=== PATIENT | male | born 1980 ===

== ENCOUNTER 2024-01-30 03:31 | Outpatient (CLI) | payer BC | END 2024-01-30 23:59 | disposition critical access hospital (66) | LOC: EMS 03:31 | DX: R55 Syncope and collapse (principal); R10.32 Left lower quadrant pain; R42 Dizziness and giddiness; I95.1 Orthostatic hypotension | CPT/HCPCS: A0425; A0427 ==

== ENCOUNTER 2024-01-30 04:00 | Emergency (ER) | payer BC ==
--- NOTE | 2024-01-30 04:04 | ED Physician Documentation ---
History of Present Illness - Stated complaint Stated Complaint: DEHYDRATION, SYNCOPE - History obtained from History obtained from: Patient, EMS - Additonal information Additional information: 43-year-old man previously healthy only on sildenafil presents with syncope x 2 tonight. Patient states he was going to the bathroom, urinated and then felt the left sharp pelvic pain that caused him to double over and then fainted twice. On EMS arrival he had significant positive orthostatics with 40 point drop in blood pressure. He did have 2 servings of alcohol at dinnertime. Denies fever, chest pain, shortness of breath, nausea vomiting diarrhea. PD PAST MEDICAL HISTORY - Allergies Allergies/Adverse Reactions: Allergies Allergy/AdvReac Type Severity Reaction Status Date / Time No Known Drug Allergies Allergy Verified 01/30/24 04:10 PD ED PE NORMAL - Vitals Vital signs reviewed: Yes - General General: Alert and oriented X 3, No acute distress, Well developed/nourished - HEENT HEENT: Atraumatic, PERRL, EOMI, Moist mucous membranes, Pharynx benign - Neck Neck: Supple, no meningeal sign - Cardiac Cardiac: RRR - Respiratory Respiratory: No respiratory distress, Clear bilaterally - Abdomen Abdomen: Non tender, Non distended, Other (Left lowerquadrant discomfort to palpation) Results - Vitals Vitals: Vital Signs - 24 hr 01/30/24 01/30/24 04:06 04:39 Temperature 36.6 C Heart Rate 82 85 Respiratory 16 16 Rate Blood Pressure 122/83 H 120/80 O2 Saturation 99 98 Oxygen O2 Source Room air - EKG (time done) 0434 EKG releavant findings:: EKG personally interpreted by author of this note. Relevant findings are: Rate: Rate (enter#) (81) Rhythm: NSR [place]: Normal Intervals: Normal SD QRS: Normal Ischemia: ST elevation c/w repol - Labs Labs: Laboratory Tests 01/30/24 01/30/24 04:02 04:02 WBC 7.0 RBC 3.98 L Hgb 13.3 L Hct 39.3 L MCV 98.7 H MCH 33.4 H MCHC 33.8 RDW 13.1 Plt Count 177 MPV 10.0 Neut # (Auto) 5.4 Lymph # (Auto) 0.9 L [place] # (Auto) 0.5 Eos # (Auto) 0.1 Baso # (Auto) 0.0 Absolute Nucleated RBC 0.00 Nucleated RBC % 0.0 Sodium 138 Potassium 4.2 Chloride 106 Carbon Dioxide 27 Anion Gap 5.0 L BUN 16 Creatinine 1.2 Estimated GFR (MDRD) 66 L Glucose 120 H Calcium 8.8 Total Bilirubin 0.5 AST 15 ALT 16 Alkaline Phosphatase 41 L Total Protein 6.0 L Albumin 4.0 Globulin 2.0 L Albumin/Globulin Ratio 2.0 Lipase 17 PD Medical Decision Making - ED course ED course: 43-year-old man presents to the episode with syncopal episode x 2 tonight with orthostasis on EMS exam. He did have alcohol and possibly viagra this past evening. Plan to obtain lab work, EKG, chest x-ray, provide IV fluids and reevaluate. Patient feeling better status post fluids. His chest x-ray is negative and EKG looks benign. Lab work is pretty good. He has some left lower abdominal cramping that is mild without rebound or guarding. no fever, no dark or bloody stools. Plan to follow-up outpatient with his primary care provider. Return precautions given. Departure - Departure Disposition: 01 Home, Self Care Clinical Impression: Hypotension, Syncope, Abdominal pain Condition: Stable Instructions: ED Syncope Vasovagal Comments: You were seen in the emergency department for evaluation of fainting episode and abdominal pain. Your ekg, chest xray and labwork looked good. Please follow-up with your primary care provider and return to the emergency department if you have any new or worsening symptoms or other concerns.
[2024-01-30] MEDS: SODIUM CHLORIDE 0.9% 2,000 ML IV STA (04:30)
[2024-01-30 04:45] VITALS: O2SAT 98
[2024-01-30 04:58] LABS: BASOPHILS % (AUTO) 0.6 %; EOSINOPHILS # (AUTO) 0.1 10^3/uL (0.0-0.7); EOSINOPHILS % (AUTO) 1.3 %; HCT - HEMATOCRIT 39.3 % (42.0-52.0); HGB - HEMOGLOBIN 13.3 g/dL (14.0-18.0); LYMPHOCYTES # (AUTO) 0.9 10^3/uL (1.5-3.5); LYMPHOCYTES % (AUTO) 12.5 %; MEAN CORPUSCULAR HEMOGLOBIN 33.4 pg (27.0-31.0); MEAN CORPUSCULAR HGB CONC 33.8 g/dL (32.0-36.0); MEAN CORPUSCULAR VOLUME 98.7 fL (80.0-94.0); MONOCYTES # (AUTO) 0.5 10^3/uL (0.0-1.0); MONOCYTES % (AUTO) 7.7 %; NEUTROPHILS # (AUTO) 5.4 10^3/uL (1.5-6.6); NEUTROPHILS % (AUTO) 77.6 %; PLT - PLATELET COUNT 177 10^3/uL (130-450); RED BLOOD COUNT 3.98 10^6/uL (4.70-6.10); RED CELL DISTRIBUTION WIDTH 13.1 % (12.0-15.0)
[2024-01-30 05:24] LABS: BILIRUBIN,TOTAL 0.5 mg/dL (0.2-1.0); CALCIUM 8.8 mg/dL (8.5-10.3); CREATININE 1.2 mg/dL (0.6-1.3); POTASSIUM 4.2 mmol/L (3.5-4.5)
[2024-01-30 06:34] VITALS: BP 125/68
--- NOTE | 2024-01-30 08:40 | XRAY Report ---
PROCEDURE: Chest 1V INDICATIONS: Chest Pain TECHNIQUE: One view of the chest was acquired. COMPARISON: None. FINDINGS: Surgical changes and devices: None. Lungs and pleura: No pleural effusions or pneumothorax. Lungs are clear. Mediastinum: Mediastinal contours appear normal. Heart size is normal. Bones and chest wall: No suspicious bony lesions. Overlying soft tissues appear unremarkable. IMPRESSION: No acute cardiopulmonary process. The above findings are concordant with preliminary report. Reviewed by: Jennifer Sanderson MD on 01/30/2024 8:39 AM PDT Approved by: Jennifer Sanderson MD on 01/30/2024 8:39 AM PDT Station ID: [id number]
== END 2024-01-30 06:24 | disposition home or self-care (01) ==
LOC: ED 04:00
DX: R55 Syncope and collapse (principal); I95.9 Hypotension, unspecified; R10.32 Left lower quadrant pain
CPT/HCPCS: 36415; 80053; 83690; 85025; 93005; 96360; 96361; 99283